=== PATIENT | male | born 1960 | race African-American/Black ===

== ENCOUNTER 2016-03-16 14:57 | Observation (INO) | payer OTHER ==
[2016-03-16] MEDS ORDERED: ASPIRIN 81 MG TABLET, CHEWABLE PO ONE (15:38)
[2016-03-16 15:55] LABS: ABSOLUTE EOSINOPHILS # (AUTO) 0.1 10^3/uL (0.0-0.6); ABSOLUTE LYMPHOCYTES (AUTO) 2.4 10^3/uL (0.5-4.7); ABSOLUTE MONOCYTES (AUTO) 0.7 10^3/uL (0.1-1.4); ABSOLUTE NEUT (AUTO) 6.8 10^3/uL (1.7-8.2); BASOPHILS % (AUTO) 0.3 % (0-2); EOSINOPHILS % (AUTO) 1.1 % (0-6); HEMATOCRIT 41.6 % (37.9-51.0); HEMOGLOBIN 13.6 g/dL (13.5-17.0); HGB HCT DIFFERENCE -0.8; LYMPHOCYTES % (AUTO) 23.7 % (13-45); MEAN CORPUSCULAR HEMOGLOBIN 25.7 pg (27.0-33.4); MEAN CORPUSCULAR HGB CONC 32.6 g/dL (32.0-36.0); MEAN CORPUSCULAR VOLUME 79 fl (80-97); MONOCYTES % (AUTO) 7.3 % (3-13); RED BLOOD COUNT 5.27 10^6/uL (4.35-5.55); RED CELL DISTRIBUTION WIDTH 14.5 % (11.5-14.0); SEGMENTED NEUTROPHILS % (AUTO) 67.6 % (42-78); WHITE BLOOD COUNT 10.1 10^3/uL (4.0-10.5)
--- NOTE | 2016-03-16 16:03 | EKG REPORT ---
SEVERITY:- ABNORMAL ECG - SINUS RHYTHM NONSPECIFIC T ABNORMALITIES, INFERIOR LEADS : Confirmed by: Thompson Alba 16-Mar-2016 16:02:06
[2016-03-16 16:15] LABS: ALANINE AMINOTRANSFERASE 38 U/L (21-72); ALBUMIN 3.9 g/dL (3.5-5.0); ALKALINE PHOSPHATASE 54 U/L (38-126); ANION GAP 13 (5-19); ASPARTATE AMINO TRANSFERASE 23 U/L (17-59); BILIRUBIN,TOTAL 0.2 mg/dL (0.2-1.3); BLOOD UREA NITROGEN 19 mg/dL (7-20); CALCIUM 9.4 mg/dL (8.4-10.2); CARBON DIOXIDE 25 mmol/L (22-30); CHLORIDE 104 mmol/L (98-107); CREATINE KINASE 277 U/L (55-170); GLUCOSE 101 mg/dL (75-110); POTASSIUM 4.1 mmol/L (3.6-5.0); TOTAL PROTEIN 6.9 g/dL (6.3-8.2)
[2016-03-16 16:21] LABS: CREATINE KINASE MB 1.52 ng/mL (<4.55)
[2016-03-16 16:22] LABS: TROPONIN I < 0.012 ng/mL
--- NOTE | 2016-03-16 18:40 | ER Document Report ---
ED Cardiac - General Chief Complaint: Chest Pain Stated Complaint: CHEST PAIN Time seen by provider: 18:39 Mode of Arrival: Ambulatory Information source: Patient Notes: This is a 55-year-old man with a history hypertension, dyslipidemia, family history for coronary artery disease that presents to the emergency room with left chest pain radiating into the neck. Patient states the episode lasted several times throughout the day. Also did describe some left calf pain earlier in the day but does not have any now. He states he was driving a lot to [place] and back over the weekend so was in the car for a while. He denies any shortness of breath. TRAVEL OUTSIDE OF THE [place] IN LAST 30 DAYS: No - HPI Patient complains to provider of: Chest pain Use of: denies: Alcohol, Amphetamines, Bath salts, Caffeine, Cocaine, Decongestants, Other Was the onset of pain: Gradual Is the pain a: New problem Chest pain location: Substernal Quality of pain: Dull Chest pain radiation location: Neck Severity now: None Severity at worst: Moderate Pain level currently: 0 Chest pain precipitating factors: Physical Exertion Cardiac risk factors: Hypertension, + Family history, Dyslipidemia. denies: Diabetes, Smoker Positive cardiac history: No Associated symptoms: denies: None, Abdominal pain, Anxiety, Back pain, Cool extremities, Diaphoresis, Dizziness, Edema, Fatigue, Fever/chills, Headache, Heartburn, Hypotension, Jaw pain, Lightheaded, Nausea/vomiting, Neck pain, Palpitations, Rash, Shortness of breath, Swelling/lump in chest, Syncope, Weakness, Other Exacerbated by: Denies Relieved by: Nothing Similar symptoms previously: No Recently seen / treated by doctor: No - Related Data Allergies/Adverse Reactions: No Known Allergies Allergy (Verified 10/25/13 07:37) Past Medical History - General Information source: Patient - Social History Smoking Status: Never Smoker Cigarette use (# per day): No Chew tobacco use (# tins/day): No Frequency of alcohol use: None Drug Abuse: None Lives with: Family Family History: Reviewed & Not Pertinent Patient has suicidal ideation: No Patient has homicidal ideation: No - Past Medical History Cardiac Medical History: Reports: Hx Hypercholesterolemia, Hx Hypertension Denies: Hx Coronary Artery Disease - high chol , Hx Heart Attack Pulmonary Medical History: Denies: Hx Asthma, Hx Bronchitis, Hx COPD, Hx Pneumonia Neurological Medical History: Denies: Hx Cerebrovascular Accident, Hx Seizures Musculoskeltal Medical History: Denies Hx Arthritis Surgical Hx: Negative - Immunizations Hx Diphtheria, Pertussis, Tetanus Vaccination: Yes Review of Systems - Review of Systems Constitutional: See HPI EENT: No symptoms reported Cardiovascular: See HPI Respiratory: No symptoms reported Gastrointestinal: No symptoms reported Genitourinary: No symptoms reported Male Genitourinary: No symptoms reported Musculoskeletal: No symptoms reported Skin: No symptoms reported Hematologic/Lymphatic: No symptoms reported Neurological/Psychological: No symptoms reported Physical Exam - Vital signs Vitals: Temp Pulse Resp BP Pulse Ox 98.1 F 95 18 148/89 H 93 03/16/16 15:06 03/16/16 15:06 03/16/16 15:06 03/16/16 15:06 03/16/16 15:06 Notes: Physical exam: GENERAL: 55-year-old man, alert and oriented 3, no acute distress HEAD: Atraumatic, normocephalic. EYES: Pupils equal round and reactive to light, extraocular movements intact, sclera anicteric, conjunctiva are normal. ENT: TMs normal, nares patent, oropharynx clear without exudates. Moist mucous membranes. NECK: Normal range of motion, supple without lymphadenopathy or JVD. LUNGS: Breath sounds clear to auscultation bilaterally and equal. No wheezes rales or rhonchi. HEART: Regular rate and rhythm without murmurs, rubs or gallops. ABDOMEN: Soft, nontender, normoactive bowel sounds. No guarding, no rebound. No masses appreciated. EXTREMITIES: Normal range of motion, no pitting or edema. No clubbing or cyanosis. NEUROLOGICAL: Cranial nerves II through XII grossly intact. Normal speech, normal gait. PSYCH: Normal mood, normal affect. SKIN: Warm, Dry, normal turgor, no rashes or lesions noted. Course - Vital Signs Vital signs: Temp Pulse Resp BP Pulse Ox 97.9 F 95 29 H 140/91 H 93 03/16/16 18:31 03/16/16 15:06 03/16/16 18:09 03/16/16 18:09 03/16/16 18:09 - Laboratory Result Diagrams: 03/16/16 15:46 03/16/16 15:46 Laboratory results interpreted by me: 03/16/16 03/16/16 15:46 15:46 MCV 79 L MCH 25.7 L RDW 14.5 H Creatinine 1.30 H Est GFR (Non-Af Amer) 58 L Creatine Kinase 277 H - Diagnostic Test Radiology reviewed: Image reviewed, Reports reviewed - CTA shows no pulmonary emboli - EKG Interpretation by Me Rate: Normal Rhythm: NSR - EKG shows normal sinus rhythm with a ventricular rate of 96, no acute ST-T wave changes Discharge - Discharge Clinical Impression: chest pain Condition: Stable Disposition: ADMITTED OBSERVATION Admitting Provider: Hospitalist - Dr. Talavera Unit Admitted: Telemetry Referrals: ANUPAMA WASHINGTON [Primary Care Provider] - Follow up as needed
[2016-03-16] MEDS ORDERED: ACETAMINOPHEN 325 MG TABLET PO PRN (18:56)
[2016-03-16] MEDS ORDERED: GLUCAGON,HUMAN RECOMB 1 MG INJ IM PRN (19:03)
[2016-03-16] MEDS ORDERED: DEXTROSE 40% GEL 15 GM TUBE PO PRN ×2 (19:03)
[2016-03-16] MEDS ORDERED: DEXTROSE 50%-WATER 25 GM/50 ML DISP.SYRIN IV PRN ×2 (19:03)
[2016-03-16] MEDS ORDERED: INSULIN REG, HUMAN 100 UNIT/ML 3 ML VIAL (PYX) SUBCUT PRN (19:03)
--- NOTE | 2016-03-16 19:09 | PDOC H&P ---
History of Present Illness Admission Date/PCP: 03/16/16 18:53 ANUPAMA PADMINI Patient complains of: Chest pain History of Present Illness: OZ CAPUTO is a 55 year old male with risk factors of hypertension, hyperlipidemia, diabetes who presents with chest pain. He reports he has had left-sided chest pain started yesterday evening. It's in the left costochondral area and reports that it was a sharp sticking pain. It occurred intermittently both at rest and with exertion. The patient did not have any associated nausea vomiting or diaphoresis. He denied having palpitations or tachycardia. It occurred again this morning when he woke up and he was concerned enough that he came to the emergency room. The patient denies any unusual activities. He had a CT angiogram of the lungs that was negative for any type of pulmonary embolism. He denies any lower extremity edema. Denies any orthopnea or PND. The patient said that his chest wall was tender to palpate yesterday however today he reports that is no longer tender to palpate. The patient reports the pain was 8 out of 10 initially last night. He is currently pain-free. Last night he did take a baby aspirin when he started having chest pain. Past Medical History Cardiac Medical History: Reports: Hyperlipidema, Hypertension Denies: Coronary Artery Disease - high chol , Myocardial Infarction Pulmonary Medical History: Denies: Asthma, Bronchitis, Chronic Obstructive Pulmonary Disease (COPD), Pneumonia EENT Medical History: Reports: None Neurological Medical History: Denies: Seizures Endocrine Medical History: Reports: Diabetes Mellitus Type 2 Renal/ Medical History: Reports: None Malignancy Medical History: Reports: None GI Medical History: Reports: None Musculoskeltal Medical History: Denies: Arthritis Skin Medical History: Reports: None Psychiatric Medical History: Reports: None Hematology: Denies: Anemia Infectious Medical History: Reports: None Past Surgical History Past Surgical History: Reports: None Social History Information Source: Patient Lives with: Family Smoking Status: Never Smoker Frequency of Alcohol Use: None Hx Recreational Drug Use: No Drugs: None - Advance Directive Resuscitation Status: Full Code Family History Family History: Mother at age 69 and had lung cancer. Father at age 79 had Alzheimer' s. Parental Family History Reviewed: Yes Children Family History Reviewed: No Sibling(s) Family History Reviewed.: No Medication/Allergy Home Medications: Atorvastatin Calcium [Lipitor 40 Mg Tablet] 40 mg PO QHS 03/10/11 Metoprolol Tartrate [Lopressor 25 Mg Tablet] 25 mg PO BID 03/10/11 Phenylephrine HCl [Sudafed Pe] 10 mg PO PRN PRN 10/25/13 Allergies/Adverse Reactions: No Known Allergies Allergy (Verified 10/25/13 07:37) Review of Systems Constitutional: ABSENT: chills, fever(s), headache(s), weight gain, weight loss Eyes: ABSENT: visual disturbances Ears: ABSENT: hearing changes Cardiovascular: PRESENT: as per HPI Respiratory: ABSENT: cough, hemoptysis Gastrointestinal: ABSENT: abdominal pain, constipation, diarrhea, hematemesis, hematochezia, nausea, vomiting Genitourinary: ABSENT: dysuria, hematuria Musculoskeletal: ABSENT: joint swelling Integumentary: ABSENT: rash, wounds Neurological: ABSENT: abnormal gait, abnormal speech, confusion, dizziness, focal weakness, syncope Psychiatric: ABSENT: anxiety, depression Endocrine: ABSENT: cold intolerance, heat intolerance, polydipsia, polyuria Hematologic/Lymphatic: ABSENT: easy bleeding, easy bruising Physical Exam Vital Signs: Temp Pulse Resp BP Pulse Ox 97.9 F 95 29 H 140/91 H 93 03/16/16 18:31 03/16/16 15:06 03/16/16 18:09 03/16/16 18:09 03/16/16 18:09 General appearance: PRESENT: no acute distress, well-developed, well-nourished Head exam: PRESENT: atraumatic, normocephalic Eye exam: PRESENT: conjunctiva pink, EOMI, PERRLA. ABSENT: scleral icterus Ear exam: PRESENT: normal external ear exam Neck exam: ABSENT: carotid bruit, JVD, lymphadenopathy, thyromegaly Respiratory exam: PRESENT: clear to auscultation sandro. ABSENT: rales, rhonchi, wheezes Cardiovascular exam: PRESENT: RRR. ABSENT: diastolic murmur, rubs, systolic murmur Pulses: PRESENT: normal dorsalis pedis pul Vascular exam: PRESENT: normal capillary refill GI/Abdominal exam: PRESENT: normal bowel sounds, soft. ABSENT: distended, guarding, mass, organolmegaly, rebound, tenderness Rectal exam: PRESENT: deferred Extremities exam: PRESENT: full ROM. ABSENT: calf tenderness, clubbing, pedal edema Neurological exam: PRESENT: alert, awake, oriented to person, oriented to place , oriented to time, oriented to situation, CN II-XII grossly intact. ABSENT: motor sensory deficit Psychiatric exam: PRESENT: appropriate affect Skin exam: PRESENT: dry, intact, warm. ABSENT: cyanosis, rash Results Impressions: Chest X-Ray 03/16/16 15:38 IMPRESSION: NO ACUTE RADIOGRAPHIC FINDING IN THE CHEST. Chest/Abdomen CTA 03/16/16 16:47 IMPRESSION: Somewhat limited study as noted above. There is suboptimal opacification of the pulmonary arteries. No obvious pulmonary emboli are identified. No acute consolidations or pleural effusions are identified. Other findings as noted above Assessment & Plan - Diagnosis (1) Chest pain Is this a current diagnosis for this admission?: YesPlan: The chest pain is atypical. He does however have risk factors in the form of hypertension, hyperlipidemia, diabetes. He does not have any family history of coronary artery disease. I suspicion is that this most likely is secondary to musculoskeletal causes. We will monitor overnight on telemetry. We'll check serial cardiac enzymes. If the enzymes are negative we can hopefully discharge home tomorrow. He most likely will need a stress test and will see whether or not that'll be able to be done tomorrow or set up as an outpatient. We'll continue with aspirin, beta blockers. (2) Hyperlipidemia Is this a current diagnosis for this admission?: YesPlan: Continue with Lipitor. (3) HTN (hypertension), benign Is this a current diagnosis for this admission?: YesPlan: Continue with Lopressor. (4) Diabetes Is this a current diagnosis for this admission?: YesPlan: The patient has been diet controlled diabetes. Will check fingerstick blood sugars and cover with sliding scale insulin if needed. - Time Time Spent: 50 to 70 Minutes - Plan Summary Plan Summary: We'll admit as an observation. I anticipate this will require less than a 2 midnight hospital stay.
[2016-03-16] MEDS ORDERED: ATORVASTATIN CALCIUM 40 MG TABLET PO SCH (22:00)
[2016-03-16] MEDS ORDERED: METOPROLOL TARTRATE 25 MG TABLET PO ONE (22:45)
--- NOTE | 2016-03-17 07:54 | EKG REPORT ---
SEVERITY:- BORDERLINE ECG - SINUS RHYTHM BORDERLINE T ABNORMALITIES, INFERIOR LEADS : Confirmed by: Thompson Alba 17-Mar-2016 07:53:40
--- NOTE | 2016-03-17 08:03 | XCELERA REPORT ---
[address] [address] Lower Extremity Venous Evaluation Name: OZ CAPUTO Age: 55 yrs Gender: Male : 1960 Patient Status: Emergency Patient Location: ER Study Date: 03/16/2016 05:28 PM Procedure: Color flow and duplex imaging of the veins of the left lower extremity as well as the right Common Femoral vein. Reason For Study: left lower leg pain Ordering Physician: DEBORAH KAUFMAN Performed By: Sosa Romero Right Sided Venous Evaluation The right common femoral vein is fully compressible. Spontaneous and phasic flow is present in the right common femoral vein. Left Sided Venous Evaluation Normal vessel filling wall to wall, compression and augmentation as well as Colour flow down to the infrageniculate veins. Critical Findings Called in to the ER,. Interpretation Summary No duplex evidence of DVT or obstruction in the left lower extremity nor in the right Common Femoral vein. : DEBORAH KAUFMAN > Jaskaran Owens
[2016-03-17] MEDS ORDERED: ASPIRIN 81 MG TABLET, CHEWABLE PO SCH (10:00)
[2016-03-17] MEDS ORDERED: METOPROLOL TARTRATE 25 MG TABLET PO SCH (10:00)
[2016-03-17 12:10] VITALS: BP 143/84
[2016-03-17] MEDS ORDERED: REGADENOSON INJ 0.4 MG/5 ML DISP.SYRIN IV ONE (13:21)
--- NOTE | 2016-03-17 14:57 | PDOC DISCHARGE SUMMARY ---
General - Admit/Disc Date/PCP Admission Date/Primary Care Provider: 03/16/16 18:56 ANUPAMA WASHINGTON Discharge Date: 03/17/16 - Discharge Diagnosis (1) Chest pain Is this a current diagnosis for this admission?: YesSummary: With an abnormal stress test with reversible ischemia (2) Hyperlipidemia Is this a current diagnosis for this admission?: Yes (3) HTN (hypertension), benign Is this a current diagnosis for this admission?: Yes (4) Diabetes Is this a current diagnosis for this admission?: Yes - Additional Information Resuscitation Status: Full Code Discharge Diet: Cardiac Discharge Activity: Activity As Tolerated Home Medications: Atorvastatin Calcium [Lipitor 40 mg Tablet] 40 mg PO QHS 03/10/11 Metoprolol Tartrate [Lopressor 25 mg Tablet] 25 mg PO BID 03/10/11 Aspirin [Aspirin 81 mg Chewable Tablet] 81 mg PO DAILY tab.chew 03/17/16 Isosorbide Mononitrate [Imdur 30 mg Tablet.er] 30 mg PO DAILY #30 tab.er.24h 07/27 History of Present Illness History of Present Illness: OZ CAPUTO is a 55 year old male with risk factors of hypertension, hyperlipidemia, diabetes who presents with chest pain. He reports he has had left-sided chest pain started yesterday evening. It's in the left costochondral area and reports that it was a sharp sticking pain. It occurred intermittently both at rest and with exertion. The patient did not have any associated nausea vomiting or diaphoresis. He denied having palpitations or tachycardia. It occurred again this morning when he woke up and he was concerned enough that he came to the emergency room. The patient denies any unusual activities. He had a CT angiogram of the lungs that was negative for any type of pulmonary embolism. He denies any lower extremity edema. Denies any orthopnea or PND. The patient said that his chest wall was tender to palpate yesterday however today he reports that is no longer tender to palpate. The patient reports the pain was 8 out of 10 initially last night. He is currently pain-free. Last night he did take a baby aspirin when he started having chest pain. Hospital Course Hospital Course: 55-year-old gentleman who presented with some atypical chest pain. He was monitored on telemetry and had negative cardiac enzymes. He underwent a stress test and it did show an area of reversible ischemia. The patient relates to me that he had a cardiac catheterization [address] Enriquez and was found to be 30% obstruction at that time. The patient currently is pain-free. We will continue with the aspirin and beta blockers as he has been doing and add on Imdur until he can follow-up as an outpatient to see whether or not he would benefit from a cardiac catheterization. Physical Exam Vital Signs: Temp Pulse Resp BP Pulse Ox 98.5 F 81 20 143/84 H 100 03/17/16 11:32 03/17/16 11:32 03/17/16 11:32 03/17/16 11:32 03/17/16 11:32 Intake & Output 03/16/16 03/17/16 03/18/16 06:59 06:59 06:59 Intake Total 500 Balance 500 Weight 131.9 kg General appearance: PRESENT: no acute distress Eye exam: PRESENT: conjunctiva pink Mouth exam: PRESENT: moist, tongue midline Neck exam: ABSENT: JVD Respiratory exam: PRESENT: clear to auscultation sandro. ABSENT: rales, rhonchi, wheezes Cardiovascular exam: PRESENT: RRR. ABSENT: diastolic murmur, rubs, systolic murmur GI/Abdominal exam: PRESENT: normal bowel sounds, soft. ABSENT: distended, guarding, mass, organolmegaly, rebound, tenderness Extremities exam: PRESENT: full ROM. ABSENT: calf tenderness, clubbing, pedal edema Psychiatric exam: PRESENT: appropriate affect Results Laboratory Results: 03/16/16 03/16/16 03/16/16 19:29 19:29 19:29 Creatine Kinase 269 H CK-MB (CK-2) 1.58 Troponin I < 0.012 03/16/16 03/17/16 03/17/16 23:27 01:50 01:50 Creatine Kinase 250 H CK-MB (CK-2) 1.42 Troponin I < 0.012 03/17/16 03/17/16 08:03 08:03 Creatine Kinase 270 H CK-MB (CK-2) 1.54 Troponin I Impressions: Chest X-Ray 03/16/16 15:38 IMPRESSION: NO ACUTE RADIOGRAPHIC FINDING IN THE CHEST. Chest/Abdomen CTA 03/16/16 16:47 IMPRESSION: Somewhat limited study as noted above. There is suboptimal opacification of the pulmonary arteries. No obvious pulmonary emboli are identified. No acute consolidations or pleural effusions are identified. Other findings as noted above Qualifiers PATEINT BEING DISCHARGED WITH ANY OF THE FOLLOWING DIAGNOSIS?: No Plan Discharge Plan: Patient is discharged home in stable condition. The patient will contact Dr. Enriquez's office to set up his appointment in the next week or 2. Time Spent: Less than 30 Minutes
--- NOTE | 2016-03-19 12:33 | DRAGON STRESS TEST REPORT ---
Intravenous Lexiscan Cardiolite stress test using single photon emmision computerized tomography. Date of procedure: 03/17/2016. Ordering Provider: Dr. Radha Rahman. Indication: Chest pain. Coronary risk factors: Age, diabetes mellitus, and hypertension, Resting EKG: Sinus Rhythm. Nonspecific ST-T changes which are minor in the inferior leads and in leads V4 V5 and V6. Stress EKG: No changes of ischemia. [With stress with IV Lexiscan the patient had T inversion in the inferior leads and in the leads V4 to V6 without ST segment depression, and hence not diagnostic for ischemia]. The patient had no chest pain or discomfort, and there were no arrhythmias seen. Reason for termination: Protocol. Conclusions: Normal EKG and hemodynamic response to IV Lexiscan. Nuclear data: At rest the patient was given 14.37 millicuries of technetium 99m sestamibi injected intravenously. As per protocol rest non gated SPECT images were obtained. Subsequently the patient was given intravenous Lexiscan at a dose of 0.4 mg in 5 mL intravenously, followed by flush with normal saline. Subsequently the stress dose of 44.7 millicuries of technetium 99m sestamibi was injected intravenously. As per protocol stress gated images were obtained. Nuclear interpretation: Review of images showed that there was a perfusion defect of mild to moderate severity involving the basal and mid inferior sims in the stress images which normalizes in the rest images. The rest of the segments of the myocardium had normal perfusion at rest, and normal perfusion post stress with IV Lexiscan. All segments of the myocardium had normal motion, contraction, and thickening by gated study. T. I D. ratio was normal at 0.92. Computer read rest, and stress left ventricular ejection fraction were 54 %, 55 and %, respectively. Visually both the stress and rest ejection fractions were normal, and greater than 55%. Conclusion: 1. There is scintigraphic evidence of Lexiscan induced myocardial ischemia, of mild to moderate severity, involving the basal and mid inferior sims. 2. There is no scintigraphic evidence of myocardial infarction/scar. Recommendations: 1.Aggressive treatment of coronary artery disease. If the patient continues to have chest pain then would recommend cardiac catheterization to 2.Aggressive risk factor modification, and treating the underlying co- morbidities. These findings were discussed with the the hospitalist taking care of the patient on 03/17/2016. MTDD
== END 2016-03-17 15:40 | disposition home or self-care (01) ==
LOC: ER 14:57 → UNDOADMOB 18:53 → EH 18:53 → 4W 21:38
PROVIDERS: ADMIT Family Medicine; ATTEND Family Medicine
DX: R07.9 Chest pain, unspecified (principal); E87.5 Hyperkalemia; I10 Essential (primary) hypertension; E11.9 Type 2 diabetes mellitus without complications; Z79.82 Long term (current) use of aspirin
CPT/HCPCS: 93005 ×2; 99285; 36415 ×2; 82553 ×2; 82962 ×2; 82550 ×2; 85025; 80053; 84484; 93971 ×2; 93017; 71010; 78452; 71275; 93010 ×2; G0378 ×3; A9500; J2785; J3490; Q9969

== ENCOUNTER → 2020-03-10 | Outpatient (CLI) | payer OTHER ==
--- NOTE | 2020-03-10 11:53 | RADIOLOGY REPORT (SQ) ---
EXAM DESCRIPTION: COOKIE SWALLOW IMAGES COMPLETED DATE/TIME: 03/10/2020 9:10 am REASON FOR STUDY: (R13.12)DYSPHAGIA, OROPHARYNGEAL PHASE R13.12 DYSPHAGIA, OROPHARYNGEAL PHASE COMPARISON: None. TECHNIQUE: Videofluoroscopic swallowing examination was performed in conjunction with speech patholo gy. Videofluoroscopic imaging was obtained and reviewed and these are the findings: RADIATION DOSE: Fluoro time 1.13 minutes 1 images saved to PACS. LIMITATIONS: None FINDINGS: The patient was brought into the fluoro room and placed upright on a modified barium swall ow chair. The patient was then given multiple consistencies mixed with barium to swallow under live fluoroscopic video guidance. According to the Speech Pathologist there was no penetration or aspirat ion. Please refer to the speech pathology report for further details. IMPRESSION: NO EVIDENCE OF PENETRATION OR ASPIRATION. PLEASE SEE SPEECH PATHOLOGIST REPORT FOR OTHER FINDINGS AND RECOMMENDATIONS. COMMENT: None Quality ID [id number]: Final reports for procedures using fluoroscopy that document radiation exposure [place] orin, or exposure time and number of fluorographic images (if radiation exposure indices are not avail able) TECHNICAL DOCUMENTATION: JOB ID: [id number] 2010 [employer]- All Rights Reserved Reading location - IP/workstation name: [facility]
== END ==
LOC: RAD 08:08
PROVIDERS: ATTEND Physician Assistant
DX: R13.12 Dysphagia, oropharyngeal phase (principal)
CPT/HCPCS: 74230